=== PATIENT | male | born 1985 | race Caucasian/White ===

== ENCOUNTER 2018-10-27 21:42 | Emergency (ER) | payer MEDICAID ==
[~2018-10-27] VITALS: Ht 190.5 cm; Wt 84.0 kg
[2018-10-27] MEDS ORDERED: IBUPROFEN 600MG TABLET PO ONE (23:15)
[2018-10-27 23:23] VITALS: BP 110/51
== END 2018-10-27 23:23 | disposition home or self-care (01) ==
LOC: ER 21:42
DX: F19.20 Other psychoactive substance dependence, uncomplicated (principal); R60.9 Edema, unspecified; J06.9 Acute upper respiratory infection, unspecified; F12.10 Cannabis abuse, uncomplicated; Z87.891 Personal history of nicotine dependence
CPT/HCPCS: 99282